=== PATIENT | female | born 1955 | race Caucasian/White ===

== ENCOUNTER 2018-11-06 11:44 | Observation (INO) ==
[2018-11-06 12:22] LABS: Basophils # 0.1 K/mcL (0.0-0.2); Eosinophils # 0.2 K/mcL (0.0-0.6); Eosinophils % 2.5 %; Hematocrit 43.3 % (35.3-44.9); Hemoglobin 14.9 g/dL (11.5-15.4); Immature Granulocytes % 0.2 % (0-4); Lymphocytes # 2.5 K/mcL (0.6-4.6); Lymphocytes % 27.9 %; Mean Corpuscular HGB Conc 34.4 g/dL (31.6-35.5); Mean Corpuscular Hemoglobin 31.2 pg (28.0-33.3); Mean Corpuscular Volume 90.8 fL (83.0-100.0); Mean Platelet Volume 9.4 fL (9.4-12.4); Monocytes # 0.7 K/mcL (0.0-1.3); Monocytes % 7.9 %; Neutrophils # 5.4 K/mcL (1.6-8.9); Platelet Count 303 K/mcL (140-400); Red Blood Count 4.77 M/mcL (3.82-4.97); Red Cell Distribution Width 12.6 % (11.5-14.5); Segmented Neutrophils % 60.5 %; White Blood Count 8.9 K/mcL (4.3-11.1)
[2018-11-06 12:38] LABS: BUN/Creatinine Ratio 13 (6-26); Blood Urea Nitrogen 17 mg/dL (8-23); Calcium 9.9 mg/dL (8.6-10.3); Carbon Dioxide 27 mEq/L (23-29); Chloride 97 mEq/L (98-107); Glucose 130 mg/dL (70-105); Osmolality,Calculated 275 (280-300); Potassium 4.6 mEq/L (3.5-5.1); Sodium 131 mEq/L (136-145); Troponin I < 0.03 ng/mL (< 0.04); eGFR For African Americans 48 (> 60); eGFR For Non-African Americans 39 (> 60)
--- NOTE | 2018-11-06 13:05 | Emergency Department Note ---
Disposition Clinical Impression: Chest pain Qualifiers: Chest pain type: unspecified Qualified Code(s): R07.9 - Chest pain, unspecified Disposition: Admitted As Inpatient Condition: Good Time of Disposition: 16:24 General Adult HPI - General Chief complaint: ED Chest Pain Stated complaint: Chest Pains Time Seen by Provider: 11/06/18 11:47 Source: patient Limitations: other Nursing Notes Reviewed: Yes Vital Signs Reviewed: Yes - History of Present Illness Pain Scale: 9 - Related Data Home Medications Medication Instructions Recorded Confirmed ARIPiprazole [Abilify] 2 mg PO HS 11/06/18 11/06/18 Albuterol Neb [Proventil Neb] 2.5 mg IH Q4HR PRN 11/06/18 11/06/18 Albuterol Sulfate [Proventil 2 puff IH Q4HR PRN 11/06/18 11/06/18 Inhaler] Buspirone HCl [Buspar] 30 mg PO BID 11/06/18 11/06/18 Gabapentin [Neurontin] 400 mg PO TID 11/06/18 11/06/18 GlipiZIDE [Glucotrol] 5 mg PO 0800 11/06/18 11/06/18 Lisinopril [Zestril] 20 mg PO DAILY 11/06/18 11/06/18 Loratadine [Allergy Relief] 10 mg PO DAILY 11/06/18 11/06/18 Omeprazole [PriLOSEC] 20 mg PO DAILY 11/06/18 11/06/18 Paroxetine HCl [Paxil] 60 mg PO DAILY 11/06/18 11/06/18 Simvastatin [Zocor] 40 mg PO HS 11/06/18 11/06/18 Topiramate [Topamax] 50 mg PO HS 11/06/18 11/06/18 Tramadol HCl [Ultram] 50 mg PO QID PRN 11/06/18 11/06/18 Trospium Chloride 20 mg PO DAILY 11/06/18 11/06/18 hydrOXYzine HCl [Hydroxyzine HCl] 25 mg PO BID PRN 11/06/18 11/06/18 Allergies Allergy/AdvReac Type Severity Reaction Status Date / Time ciprofloxacin [From Cipro] Allergy Rash Verified 02/03/17 16:14 ketorolac [From Toradol] Allergy Rash Verified 02/03/17 16:14 prednisone Allergy Rash Verified 02/03/17 16:14 loratab Allergy Rash Uncoded 02/03/17 16:14 Past Medical History - Past Medical History Medical history: Reports: asthma, COPD, diabetes, GERD, hyperlipidemia, hypertension, renal disease, seizures, other Surgical history: Reports: cholecystectomy, hysterectomy, pacemaker/AICD Psychiatric history: Reports: no psych history - Social History Smoking Status: Current every day smoker Smokeless Tobacco Status: No Alcohol use: Reports: none Drug use: Reports: marijuana Physical Exam - General Limitations: other General appearance: alert, in no apparent distress Course Vital Signs Temperature 98.2 F 11/06/18 11:56 Pulse Rate 77 11/06/18 11:56 Respiratory Rate 18 11/06/18 11:56 Blood Pressure 143/97 11/06/18 11:56 O2 Sat by Pulse Oximetry 99 11/06/18 11:56 Temperature 98.0 F 11/06/18 15:59 Pulse Rate 71 11/06/18 15:59 Respiratory Rate 16 11/06/18 15:59 Blood Pressure 154/68 11/06/18 15:59 O2 Sat by Pulse Oximetry 96 11/06/18 15:59 Oxygen Delivery Oxygen Delivery Room Air Medical Decision Making - [facility] Narrative Medical decision making narrative: Chest X-Ray 11/06/18 11:47 IMPRESSION: Normal appearing chest. No acute abnormality. D/ / Vijay Cooper MD / Vijay Cooper MD Interpreting Provider: Vijay Cooper MD 1300 hrs.: Chest x-rays negative. Troponin is negative and d-dimer is normal. We will let her go home, follow up with primary care and return her if worse. She is in agreement with plan. 1415 hrs.: Patient's side she wants to be admitted so we will bring her in. She does have her factors for cardiac disease. Waiting on hospitalist for admission. 1520 hrs.: Patient is getting ready upstairs and started having some chest pain again. She had a repeat EKG, shows a sinus rhythm, rate is 72, QRS is 80, QTC is 413, has no signs of ischemia has no signs of ectopy. We also give her some Ativan as she think she is having anxiety. - Lab Data Result diagrams: 11/06/18 12:00 11/06/18 12:00 Lab Results 11/06/18 11/06/18 11/06/18 Range/Units 12:00 12:00 12:00 WBC 8.9 (4.3-11.1) K/mcL RBC 4.77 (3.82-4.97) M/mcL Hgb 14.9 (11.5-15.4) g/dL Hct 43.3 (35.3-44.9) % MCV 90.8 (83.0-100.0) fL MCH 31.2 (28.0-33.3) pg MCHC 34.4 (31.6-35.5) g/dL RDW 12.6 (11.5-14.5) % Plt Count 303 (140-400) K/mcL MPV 9.4 (9.4-12.4) fL Immature Gran % 0.2 (0-4) % Seg Neutrophils % 60.5 % Lymphocytes % 27.9 % Monocytes % 7.9 % Eosinophils % 2.5 % Basophils % 1.0 % Neutrophils # 5.4 (1.6-8.9) K/mcL Lymphocytes # 2.5 (0.6-4.6) K/mcL Monocytes # 0.7 (0.0-1.3) K/mcL Eosinophils # 0.2 (0.0-0.6) K/mcL Basophils # 0.1 (0.0-0.2) K/mcL D-Dimer 241 (0-500) ng/mLFEU Sodium 131 L (136-145) mEq/L Potassium 4.6 (3.5-5.1) mEq/L Chloride 97 L (98-107) mEq/L Carbon Dioxide 27 (23-29) mEq/L BUN 17 (8-23) mg/dL Creatinine 1.36 H (0.60-1.20) mg/dL Est GFR ( Amer) 48 L (> 60) Est GFR (Non-Af Amer) 39 L (> 60) BUN/Creatinine Ratio 13 (6-26) Glucose 130 H (70-105) mg/dL Calculated Osmolality 275 L (280-300) Calcium 9.9 (8.6-10.3) mg/dL Troponin I < 0.03 (< 0.04) ng/mL Attestation Statement - Attestation Attestation: This documentation is done with the assistance of Dragon dictation. Despite efforts made to ensure accuracy, there may be inaccuracies in transport assistant or spelling and typographical errors. I examined this patient and my medical decision-making was reviewed with the Resident Physician. I agree with the documented findings, disposition and treatment plan as described except to the extent set forth below. Patient was seen and evaluated by Dr. Mg, I agree with their evaluation and management plan, I supervised care the patient's stay. Patient presents today with what she thinks is anxiety. She says she has had anxiety attacks before but she says she usually does not chest pain with them. She states that this could easily be anxiety. She does have risk factors for heart disease also. She states at this time she would like to make sure this is not her heart. Regarding EKG troponin and then we will reassess. She has some said sedentary lifestyle so she is low risk for PE with all's criteria. We will order a d-dimer on her also. She is in agreement with plan. No chest pain at this time. I reviewed the residents documentation and agree with the residents assessment and plan of care. I have personally had face to face time with the patient. (Brief History, Brief Exam, and MDM) I personally supervised and was present for the penn/critical portions of the following procedures completed by the resident: EKG was interpreted by the resident under my supervision, I agree with their interpretation.
[2018-11-06] MEDS ORDERED: Aspirin 81 MG TAB.CHEW PO STA (13:21)
[2018-11-06] MEDS: Nitroglycerin 0.4 MG TAB.SUBL SL STA ×2 (13:53→13:55)
--- NOTE | 2018-11-06 13:54 | Emergency Department Note ---
Disposition Clinical Impression: Chest pain Qualifiers: Chest pain type: unspecified Qualified Code(s): R07.9 - Chest pain, unspecified Disposition: Admitted As Inpatient Condition: Good Referrals: Jenifer Louis MD [Partnered Physician] - Forms: ED Satisfaction Letter Time of Disposition: 14:38 Chest Pain HPI - General Chief Complaint: ED Chest Pain Stated Complaint: Chest Pains Time Seen by Provider: 11/06/18 11:47 Source: patient Mode of arrival: ambulatory Limitations: other (Patient's blind.) Vital Signs Reviewed: Yes Nursing Notes Reviewed: Yes - History of Present Illness HPI Narrative: Female patient presents emergency with a 2 day history of left-sided chest pain. She states that she got anxious and then started having the pain. She has had anxiety attacks before and never had chest pain. Does have a history of diabetes as well as high cholesterol, is a smoker and has hypertension. She is currently blind segment due to macular degeneration that advanced significantly. She is still being worked up for this at this time. She states that the pain does radiate to her back. Does have occasional shortness of breath associated with this. She has not tried anything to make this better. She has been taking her medication as prescribed. She denies any trauma. No history of DVT or PE. No swelling to her extremities. She denies any long trips but does lead a sedentary lifestyle secondary to her blindness. Severity scale (1-10): 9 - Related Data Home Medications Medication Instructions Recorded Confirmed Advair 500-50 Diskus 02/03/17 Albuterol Neb 02/03/17 Glipizide 02/03/17 Lisinopril [Zestril] 02/03/17 Loratadine 02/03/17 Meloxicam 02/03/17 Nicotine Patch 02/03/17 Omeprazole 02/03/17 Paroxetine HCl 02/03/17 Proair Hfa 02/03/17 Simvastatin 02/03/17 Tramadol HCl 02/03/17 Trospium Chloride 02/03/17 Previous Rx's Medication Instructions Recorded Diclofenac Sodium [Voltaren] 50 mg PO Q8HR PRN #30 tablet. 02/03/17 Allergies Allergy/AdvReac Type Severity Reaction Status Date / Time ciprofloxacin [From Cipro] Allergy Rash Verified 02/03/17 16:14 ketorolac [From Toradol] Allergy Rash Verified 02/03/17 16:14 prednisone Allergy Rash Verified 02/03/17 16:14 loratab Allergy Rash Uncoded 02/03/17 16:14 All systems ED: reviewed and negative except as stated. Review of Systems: As Per HPI Constitutional: Denies: fever, chills Cardiovascular: Reports: chest pain. Denies: palpitations, syncope Respiratory: Reports: cough, dyspnea, sputum production Gastrointestinal: Denies: abdominal pain, nausea, vomiting, diarrhea, hematemesis, melena, hematochezia Genitourinary: Denies: urgency, dysuria, frequency, hematuria Musculoskeletal: Denies: back pain Psychiatric: Reports: anxiety (Previously but not at this time.) Chest Pain PMH - Past Medical History Medical history: Reports: asthma, COPD, diabetes, GERD, hyperlipidemia, hypertension, renal disease, seizures, other Surgical history: Reports: cholecystectomy, hysterectomy, pacemaker/AICD Psychiatric history: Reports: no psych history - Social History Smoking Status: Current every day smoker Alcohol use: Reports: none Drug use: Reports: marijuana Physical Exam - General Limitations: other General appearance: alert, in no apparent distress - Head Head exam: atraumatic, normocephalic, normal inspection - Eye Eye exam: Present: normal appearance, PERRL, EOMI - ENT ENT exam: normal exam, normal oropharynx, mucous membranes moist - Neck Neck exam: Present: normal inspection, full ROM, trachea midline - Chest Chest inspection: Present: normal inspection, symmetric chest wall rise - Respiratory Respiratory exam: Present: normal lung sounds bilaterally. Absent: respiratory distress, accessory muscle use - Cardiovascular Cardiovascular exam: Present: regular rate, normal rhythm, normal heart sounds - Abdominal Exam Abdominal exam: Present: soft, Non-Tender. Absent: tenderness, distention, guarding, rebound, rigidity, organomegaly, Mckinney's sign, Rovsing's sign, tenderness at McBurney's Point - Extremities Exam Extremities exam: Present: normal inspection, full ROM, normal capillary refill. Absent: tenderness, pedal edema, calf tenderness - Expanded Lower Extremity Exam Hip/Pelvis exam: Present: normal inspection, full ROM Upper leg exam: Present: normal inspection, full ROM Knee exam: Present: normal inspection, full ROM Lower leg exam: Present: normal inspection, full ROM Ankle exam: Present: normal inspection, full ROM Foot/toe exam: Present: normal inspection, full ROM Neurovascular/Tendon exam: Absent: motor deficit, sensory deficit, tendon deficit - Back Exam Back exam: Present: normal inspection, full ROM. Absent: tenderness - Neurological Exam Neurological exam: Present: alert, oriented X3. Absent: motor sensory deficit - Psychiatric Psychiatric exam: Present: normal affect, normal mood - Skin Skin exam: Present: warm, dry, intact, normal color. Absent: rash, cyanosis, diaphoresis Course Course Narrative: Patient with left-sided chest pain that radiates to her back. Does have some short of breath and cough so she with it. Lung sounds are clear heart tones are normal. Abdomen is soft nontender. No social nausea or vomiting. Does report that this started around an anxiety attack however she has never had chest pain associated with anxiety attack before. Patient reports no cardiac history. However she has a smoker and has diabetes as well as hypercholesterolemia. No history of DVT or PE for her. Vitals are stable. We will provide her with aspirin get a cardiac workup inclusive of the chest x-ray. Patient does not have any wheezing for me to assume that this could be a COPD exacerbation and there are no focal areas of rhonchi that I can appreciate on auscultation. - Reevaluation(s) Reevaluation #1: Patient with a heart score of 5. Negative troponin. I discussed with patient findings with her. She is requesting admission for further cardiac evaluation. I feel this is reasonable. Her blood pressure has been around 100 systolic so nitroglycerin was withheld. We will provide her with morphine to help with her pain. Time: 14:22 - Consultations Consultation #1: Dr Clark accepted Pt in stable condition. Time: 14:36 Vital Signs Temperature 98.2 F 11/06/18 11:56 Pulse Rate 77 11/06/18 11:56 Respiratory Rate 18 11/06/18 11:56 Blood Pressure 143/97 11/06/18 11:56 O2 Sat by Pulse Oximetry 99 11/06/18 11:56 Temperature 98.2 F 11/06/18 11:56 Pulse Rate 84 11/06/18 14:20 Respiratory Rate 16 11/06/18 13:53 Blood Pressure 122/76 11/06/18 14:20 O2 Sat by Pulse Oximetry 98 11/06/18 14:20 Oxygen Delivery Oxygen Delivery Room Air Chest Pain - Medical Records Medical records reviewed: Yes I reviewed the patient's medical records. - Lab Data Lab results reviewed: Yes I reviewed the patient's lab results. Result diagrams: 11/06/18 12:00 11/06/18 12:00 Lab Results 11/06/18 11/06/18 11/06/18 Range/Units 12:00 12:00 12:00 WBC 8.9 (4.3-11.1) K/mcL RBC 4.77 (3.82-4.97) M/mcL Hgb 14.9 (11.5-15.4) g/dL Hct 43.3 (35.3-44.9) % MCV 90.8 (83.0-100.0) fL MCH 31.2 (28.0-33.3) pg MCHC 34.4 (31.6-35.5) g/dL RDW 12.6 (11.5-14.5) % Plt Count 303 (140-400) K/mcL MPV 9.4 (9.4-12.4) fL Immature Gran % 0.2 (0-4) % Seg Neutrophils % 60.5 % Lymphocytes % 27.9 % Monocytes % 7.9 % Eosinophils % 2.5 % Basophils % 1.0 % Neutrophils # 5.4 (1.6-8.9) K/mcL Lymphocytes # 2.5 (0.6-4.6) K/mcL Monocytes # 0.7 (0.0-1.3) K/mcL Eosinophils # 0.2 (0.0-0.6) K/mcL Basophils # 0.1 (0.0-0.2) K/mcL D-Dimer 241 (0-500) ng/mLFEU Sodium 131 L (136-145) mEq/L Potassium 4.6 (3.5-5.1) mEq/L Chloride 97 L (98-107) mEq/L Carbon Dioxide 27 (23-29) mEq/L BUN 17 (8-23) mg/dL Creatinine 1.36 H (0.60-1.20) mg/dL Est GFR ( Amer) 48 L (> 60) Est GFR (Non-Af Amer) 39 L (> 60) BUN/Creatinine Ratio 13 (6-26) Glucose 130 H (70-105) mg/dL Calculated Osmolality 275 L (280-300) Calcium 9.9 (8.6-10.3) mg/dL Troponin I < 0.03 (< 0.04) ng/mL - Radiology Data Radiology results reviewed: Yes I reviewed the patient's radiology results. Chest X-Ray 11/06/18 11:47 IMPRESSION: Normal appearing chest. No acute abnormality. D/ / Vijay Cooper MD / Vijay Cooper MD Interpreting Provider: Vijay Cooper MD - EKG Data EKG attestation: Yes I reviewed and interpreted this EKG. EKG results narrative: Normal sinus rhythm at a rate of 81. [place] interval is 171. QRS duration is 91. QT is 382. QTC is 447. No signs of acute ischemia. Good R-wave progression. No signs of WPW or Brugada. No previous EKG to compare to. Blunting of her T- wave in lead V1 Heart Score - Score History: Moderately Suspicious EKG: Non Specific repolarisation Disturbance Age: 45-65 Risk Factors: Equal/Greater than 3 risk factor or history of atherosclerotic disease Troponin: Less than normal limit HEART Score Total: 5
[2018-11-06] MEDS ORDERED: Morphine Sulfate 2 MG/ML SYRINGE IVP STA (14:09)
[2018-11-06] MEDS ORDERED: Ondansetron 4 MG/2 ML VIAL IVP PRN (14:43)
[2018-11-06] MEDS ORDERED: Naloxone 0.4 MG/ML INJ IVP PRN (14:43)
[2018-11-06] MEDS ORDERED: traMADol 50 MG TABLET PO PRN (14:45)
[2018-11-06] MEDS ORDERED: hydrOXYzine pamoate 25 MG CAPSULE PO PRN (14:45)
[2018-11-06] MEDS ORDERED: Albuterol 2.5 MG/3 ML NEBULIZER IH PRN (14:45)
[2018-11-06] MEDS ORDERED: *HR* Dextrose 50 % in Water (Syg) 50 ML SYRINGE IVP PRN (14:45)
[2018-11-06] MEDS ORDERED: Dextrose Gel 15 GM/37.5 ML TUBE PO PRN ×2 (14:45)
[2018-11-06] MEDS ORDERED: D5% in Water 1,000 ML IVC PRN (14:45)
--- NOTE | 2018-11-06 15:05 | Internal Med History&Physical ---
Date of Encounter: 11/06/18 Time of Encounter: 14:40 Internal Medicine - H&P: HPI Chief complaint: chest pain Admitted From: Home History of present illness: Ms. Conner is a 63 year old female with history of hypertension, tobacco abuse, HLD, diabetes no longer on meds, CKD stage III, blindness due to macular degeneration, presented to the ED with 2 week history of intermittent chest pain. Left-sided, lasting 10-15 minutes each time, and radiates to the neck. She states that they occur when she has "panic attacks" and are associated with p alpitation. No relieving factors. She also had SOB and nausea associated with the events but no diaphoresis or actual vomiting. Denies any fever/chills, cough, sputum production, sick contacts, abdominal pain, change in bowel habits, or dysuria. States that she had stress tests about 10 years ago which was reported to be normal. Her usual panic attacks are not accompanied by chest pain hence she decided come to the ED for further evaluation. In the ED, she was afebrile and hemodynamically stable. Labwork including troponin and d-dimer were normal. Creatinine at her baseline. Chest x-ray without any acute cardiopulmonary process. EKG showed normal sinus rhythm without concerning isc hemic changes. Patient was loaded with aspirin and admitted for further management. Past Med Surg Social Fam HX - Past Medical History Attestation: Yes The following information was validated with the patient. Medical history: asthma, COPD, diabetes, GERD, hyperlipidemia, hypertension, renal disease, other Additional medical history: macular degeneration,blind Psychiatric history: no psych history - Past Surgical History Surgical History: cholecystectomy, hysterectomy Additional surgical history: carpal tunnel, bladder surgery, left rotator cuff - Social History Smoking Status: Current every day smoker Smokeless Tobacco Status: No Alcohol use: none Drug use: marijuana - Additional Family History Additional family history: No family history of premature CAD Internal Medicine - H&P: Meds ARIPiprazole [Abilify] 2 mg PO HS 11/06/18 [History] Albuterol Neb [Proventil Neb] 2.5 mg IH Q4HR PRN 11/06/18 [History] Albuterol Sulfate [Proventil Inhaler] 2 puff IH Q4HR PRN 11/06/18 [History] Buspirone HCl [Buspar] 30 mg PO BID 11/06/18 [History] Gabapentin [Neurontin] 400 mg PO TID 11/06/18 [History] GlipiZIDE [Glucotrol] 5 mg PO 0800 11/06/18 [History] Lisinopril [Zestril] 20 mg PO DAILY 11/06/18 [History] Loratadine [Allergy Relief] 10 mg PO DAILY 11/06/18 [History] Omeprazole [PriLOSEC] 20 mg PO DAILY 11/06/18 [History] Paroxetine HCl [Paxil] 60 mg PO DAILY 11/06/18 [History] Simvastatin [Zocor] 40 mg PO HS 11/06/18 [History] Topiramate [Topamax] 50 mg PO HS 11/06/18 [History] Tramadol HCl [Ultram] 50 mg PO QID PRN 11/06/18 [History] Trospium Chloride 20 mg PO DAILY 11/06/18 [History] hydrOXYzine HCl [Hydroxyzine HCl] 25 mg PO BID PRN 11/06/18 [History] Allergy/AdvReac Type Severity Reaction Status Date / Time ciprofloxacin [From Cipro] Allergy Rash Verified 02/03/17 16:14 ketorolac [From Toradol] Allergy Rash Verified 02/03/17 16:14 prednisone Allergy Rash Verified 02/03/17 16:14 loratab Allergy Rash Uncoded 02/03/17 16:14 All Systems PM: A 10-system review of systems was performed and is negative for pertinent findings except as documented above in the HPI. - Constitutional Vitals: Temp Pulse Resp BP Pulse Ox 98.2 F 84 16 122/76 98 11/06/18 11:56 11/06/18 14:20 11/06/18 13:53 11/06/18 14:20 11/06/18 14:20 Exam: General: Alert and oriented, not in acute distress. HEENT:Blind Cardiovascular:Normal S1 & S2, No JVD. Pulse regular. No chest wall tenderness Lungs: clear to auscultation, no wheezes/rales Abdomen:Soft, non-tender, no rigidity. Extremities:No deformity or swelling Neurological:Normal cognition and motor skills. Non-focal Skin:Normal color, no rash, no lesions. Pulses:Carotid and radial pulses normal +2. Rest of the physical exam is non contributory Internal Med - H&P Results - Labs CBC & Chem 7: 11/06/18 12:00 11/06/18 12:00 Labs: Short CBC 11/06/18 Range/Units 12:00 WBC 8.9 (4.3-11.1) K/mcL Hgb 14.9 (11.5-15.4) g/dL Hct 43.3 (35.3-44.9) % Plt Count 303 (140-400) K/mcL Neutrophils # 5.4 (1.6-8.9) K/mcL BMP 11/06/18 12:00 Sodium 131 L Potassium 4.6 Chloride 97 L Carbon Dioxide 27 BUN 17 Creatinine 1.36 H Glucose 130 H Calcium 9.9 Cardiac Enzymes 11/06/18 Range/Units 12:00 Troponin I < 0.03 (< 0.04) ng/mL - Impressions ITS Impressions Chest X-Ray 11/06/18 11:47 IMPRESSION: Normal appearing chest. No acute abnormality. D/ / Vijay Cooper MD / Vijay Cooper MD Interpreting Provider: Vijay Cooper MD - Assessment and Plan (1) Chest pain Current Visit: Yes Status: Acute Assessment and plan: Atypical chest pain in a patient with hypertension, hyperlipidemia, CKD, well c ontrolled diabetes, and tobacco abuse Associated with bouts of panic attacks but have been becoming morefrequent First troponin negative, EKG without acute changes, D-dimer -ve trend troponin, telemetry echocardiogram if serial troponins are negative, will proceed with stress test tomorrow. Nothing by mouth after midnight. Qualifiers: Chest pain type: unspecified Qualified Code(s): R07.9 - Chest pain, unspecified (2) Panic attack Current Visit: Yes Status: Acute Assessment and plan: Resume home dose of hydroxyzine Continue SSRI Will add Ativan if symptoms are poorly controlled (3) HTN (hypertension) Current Visit: Yes Status: Chronic Assessment and plan: resume home meds Qualifiers: Hypertension type: essential hypertension Qualified Code(s): I10 - Essential (primary) hypertension (4) HLD (hyperlipidemia) Current Visit: Yes Status: Chronic Assessment and plan: Lipid panel in 09/2018 showed LDL of 70 resume home dose of statin Qualifiers: Hyperlipidemia type: unspecified Qualified Code(s): E78.5 - Hyperlipidemia, unspecified (5) COPD (chronic obstructive pulmonary disease) Current Visit: Yes Status: Chronic Assessment and plan: Not in exacerbation, resume home inhalers Qualifiers: COPD type: unspecified COPD Qualified Code(s): J44.9 - Chronic obstructive pulmonary disease, unspecified (6) Tobacco abuse Current Visit: Yes Status: Chronic Assessment and plan: Counselled on smoking cessation NRT (7) DVT prophylaxis Current Visit: Yes Status: Acute Assessment and plan: SQ heparin - Time Spent With Patient Total time spent is greater than 50% in coordination of care (as documented) at patient's floor/unit and/or counseling patient: 25 - 35 minutes
[2018-11-06] MEDS ORDERED: *HR* LORazepam 0.5 MG TABLET PO ONE (15:24)
[2018-11-06] MEDS ORDERED: Ondansetron 4 MG/2 ML VIAL IVP ONE (15:38)
[2018-11-06] MEDS ORDERED: Nitroglycerin 0.4 MG TAB.SUBL SL ONE (16:20)
[2018-11-06] MEDS: Nitroglycerin 0.4 MG TAB.SUBL SL PRN ×3 (16:21→21:19)
[2018-11-06] MEDS ORDERED: Insulin LISPRO 300 UNITS/3 ML VIAL SQ SCH (16:30)
[2018-11-06] MEDS: Gabapentin 400 MG CAPSULE PO SCH ×2 (17:29→20:57)
[2018-11-06] MEDS ORDERED: ARIPiprazole 2 MG TABLET PO SCH (21:00)
[2018-11-06] MEDS ORDERED: Topiramate 25 MG TABLET PO SCH (21:00)
[2018-11-07 01:18] LABS: Hematocrit 40.4 % (35.3-44.9); Hemoglobin 13.7 g/dL (11.5-15.4); Mean Corpuscular HGB Conc 33.9 g/dL (31.6-35.5); Mean Corpuscular Hemoglobin 30.7 pg (28.0-33.3); Mean Corpuscular Volume 90.6 fL (83.0-100.0); Mean Platelet Volume 9.4 fL (9.4-12.4); Platelet Count 277 K/mcL (140-400); Red Blood Count 4.46 M/mcL (3.82-4.97); Red Cell Distribution Width 12.5 % (11.5-14.5); White Blood Count 7.3 K/mcL (4.3-11.1)
[2018-11-07 01:34] LABS: Calcium 9.1 mg/dL (8.6-10.3); Magnesium 1.9 mg/dL (1.6-2.6); Potassium 4.1 mEq/L (3.5-5.1)
[2018-11-07] MEDS ORDERED: Morphine Sulfate 2 MG/ML SYRINGE IVP ONE ×2 (03:54→04:02)
[2018-11-07] MEDS: Nitroglycerin 0.4 MG TAB.SUBL SL PRN (04:00)
[2018-11-07] MEDS ORDERED: *HR* Heparin 5,000 UNIT/ML VIAL IVP PRN ×2 (04:03)
[2018-11-07] MEDS ORDERED: *HR* Heparin 5,000 UNIT/ML VIAL IVP ONE (04:03)
[2018-11-07] MEDS ORDERED: Nitroglycerin 25 MG/250 ML INFUS..BTL IVC SCH (04:15)
[2018-11-07] MEDS ORDERED: Heparin 25,000 UNIT/250 ML D5W 25,000 UNIT/250 ML IV.SOLN IVC SCH (04:15)
[2018-11-07 04:39] LABS: INR 0.9; Prothrombin Time 10.1 Seconds (9.4-12.1)
[2018-11-07 04:39] LABS: Hematocrit 42.3 % (35.3-44.9); Hemoglobin 14.4 g/dL (11.5-15.4); Immature Platelets 1.8 % (1.1-6.1); Mean Corpuscular Hemoglobin 30.7 pg (28.0-33.3); Mean Corpuscular Volume 90.2 fL (83.0-100.0); Mean Platelet Volume 9.2 fL (9.4-12.4); Red Blood Count 4.69 M/mcL (3.82-4.97); Red Cell Distribution Width 12.4 % (11.5-14.5); White Blood Count 8.9 K/mcL (4.3-11.1)
[2018-11-07 04:40] LABS: Heparin anti-factor XA UFH 0.07 IU/mL (0.30-0.70)
[2018-11-07 04:42] LABS: Activated Partial Thrombo Time 32.3 Seconds (26.0-36.0)
--- NOTE | 2018-11-07 07:53 | Event Note ---
Date of Encounter: 11/07/18 Time of Encounter: 03:54 Alerted by pts. nurse Leeann, RN that the pt. was reporting crushing CP 10/10 and could I please come see the pt. Pt. was admitted for CP and ACS r/o. I went to the pt. immediately who was clutching her chest and SOB. Pt. was also diaphoretic. Pt. reported CP in left breast. Stat EKG ordered as well as stat troponin. Initial troponins had been negative. Nurse instructed to give SL nitro to pt. I sent Vocera to Dr. Mcghee to come and see the pt. Heparin gtt and nitro gtt ordered. EKG showed sinus rhythm with marked ST elevation, consider inferior injury. Marked ST elevation without normally inflected T-wave and 2/aVF. Acute MS. Dr. Mcghee came to assess the pt. Dr. Sutton paged at 03:54 as he was long term for Interventional Cardiology. Images of the pts. EKG sent to Dr. Sutton via [facility]. Dr. Sutton returned call at 04:19 w/instruction to get new EKG as he felt this was a spasm or artifact. New EKG showed SR and normal EKG. Dr. Sutton's interpretation was that the EKG machine was over-reading. Patient reported CP was now a 4/10 after the 2 mg IVP morphine and SL nitro. I checked on this patient several times over the next hour to assess her progress. Nurse instructed to continue monitoring the pt. very closely and alert me immediately of any adverse changes.
--- NOTE | 2018-11-07 08:28 | Event Note ---
Date of Encounter: 11/07/18 Time of Encounter: 08:20 - Cardiology Event Note Laboratory Tests 11/06/18 11/06/18 11/07/18 12:00 18:07 00:41 Troponin I < 0.03 < 0.03 < 0.03 11/07/18 03:56 Troponin I < 0.03 Currently CP free. Will wean IV NTG off. ECG stable. Echo pending. Discussed with primary service, stress test pending later this am once NTG gtt off. Discussed with Dr. Oconnor, please consult if any abnormal results on echo or ST.
[2018-11-07] MEDS ORDERED: Aspirin Enteric Coated 81 MG Tablet PO SCH (09:00)
[2018-11-07] MEDS ORDERED: Loratadine 10 MG TABLET PO SCH (09:00)
[2018-11-07] MEDS ORDERED: Lisinopril 20 MG TABLET PO SCH (09:00)
[2018-11-07] MEDS ORDERED: Nicotine 21 MG PATCH.TD24 TD SCH (09:00)
[2018-11-07] MEDS ORDERED: Regadenoson 0.4 MG/5 ML SYRINGE IVP ONE (10:39)
[2018-11-07] MEDS: Gabapentin 400 MG CAPSULE PO SCH ×2 (11:51→13:32)
[2018-11-07 12:01] VITALS: BP 148/85
--- NOTE | 2018-11-07 13:48 | Discharge Summary ---
- NOTES TO OUTPATIENT PROVIDER Notes to Outpatient Provider: Follow up with PCP. Date of Encounter: 11/07/18 Time of Encounter: 12:00 - Discharge Diagnosis (1) Chest pain Priority: Primary Status: Acute Qualifiers: Chest pain type: unspecified Qualified Code(s): R07.9 - Chest pain, unspecified (2) Panic attack Priority: Secondary Status: Acute (3) HTN (hypertension) Priority: Secondary Status: Chronic Qualifiers: Hypertension type: essential hypertension Qualified Code(s): I10 - Essential (primary) hypertension (4) HLD (hyperlipidemia) Priority: Secondary Status: Chronic Qualifiers: Hyperlipidemia type: unspecified Qualified Code(s): E78.5 - Hyperlipidemia, unspecified (5) COPD (chronic obstructive pulmonary disease) Priority: Secondary Status: Chronic Qualifiers: COPD type: unspecified COPD Qualified Code(s): J44.9 - Chronic obstructive pulmonary disease, unspecified (6) Tobacco abuse Priority: Secondary Status: Chronic (7) DVT prophylaxis Priority: Secondary Status: Acute Hospital course: Ms. Conner is a 63 year old female with history of hypertension, tobacco abuse, HLD, diabetes no longer on meds, CKD stage III, blindness due to macular degeneration, who was admitted for 2 week history of intermittent, atypical chest pain. Correlated to the episodes of panic attack but given her risk factors, she was admitted for observation. Serial troponins -ve, EKG no ischemic changes, and echocardiogram was unremarkable. She did briefly require hep and nitro gtt in concern for unstable angina but subsequent stress test (after nitro being weaned off) was normal. She will be discharged on PRN ativan for panic attacks and follow up with PCP and psychiatry. If symptoms recur and persist despite treatment for panic attacks, she was advised to return to the ED or get cardiology appointment. Discharge discussed with: patient, nurse, library sales consultant - Time Spent with Patient Total time spent providing and/or coordinating discharge services: 29 mins - Discharge Medications Prescriptions: New LORazepam [Ativan] 0.5 mg PO TID PRN 5 Days #15 tablet PRN Reason: Anxiety Nitroglycerin 0.4 mg SL Q5MPRN PRN #30 tab.subl PRN Reason: Chest Pain Continued hydrOXYzine HCl [Hydroxyzine HCl] 25 mg PO BID PRN PRN Reason: Anxiety GlipiZIDE [Glucotrol] 5 mg PO 0800 Albuterol Sulfate [Proventil Inhaler] 2 puff IH Q4HR PRN PRN Reason: sob/wheeze Albuterol Neb [Proventil Neb] 2.5 mg IH Q4HR PRN PRN Reason: sob/wheeze Trospium Chloride 20 mg PO DAILY Tramadol HCl [Ultram] 50 mg PO QID PRN PRN Reason: Pain Topiramate [Topamax] 50 mg PO HS Simvastatin [Zocor] 40 mg PO HS Paroxetine HCl [Paxil] 60 mg PO DAILY Loratadine [Allergy Relief] 10 mg PO DAILY ARIPiprazole [Abilify] 2 mg PO HS Omeprazole [PriLOSEC] 20 mg PO DAILY Lisinopril [Zestril] 20 mg PO DAILY Gabapentin [Neurontin] 400 mg PO TID Buspirone HCl [Buspar] 30 mg PO BID Home Medications: ARIPiprazole [Abilify] 2 mg PO HS 11/06/18 [History] Albuterol Neb [Proventil Neb] 2.5 mg IH Q4HR PRN 11/06/18 [History] Albuterol Sulfate [Proventil Inhaler] 2 puff IH Q4HR PRN 11/06/18 [History] Buspirone HCl [Buspar] 30 mg PO BID 11/06/18 [History] Gabapentin [Neurontin] 400 mg PO TID 11/06/18 [History] GlipiZIDE [Glucotrol] 5 mg PO 0800 11/06/18 [History] Lisinopril [Zestril] 20 mg PO DAILY 11/06/18 [History] Loratadine [Allergy Relief] 10 mg PO DAILY 11/06/18 [History] Omeprazole [PriLOSEC] 20 mg PO DAILY 11/06/18 [History] Paroxetine HCl [Paxil] 60 mg PO DAILY 11/06/18 [History] Simvastatin [Zocor] 40 mg PO HS 11/06/18 [History] Topiramate [Topamax] 50 mg PO HS 11/06/18 [History] Tramadol HCl [Ultram] 50 mg PO QID PRN 11/06/18 [History] Trospium Chloride 20 mg PO DAILY 11/06/18 [History] hydrOXYzine HCl [Hydroxyzine HCl] 25 mg PO BID PRN 11/06/18 [History] LORazepam [Ativan] 0.5 mg PO TID PRN 5 Days #15 tablet 11/07/18 [Rx] Nitroglycerin 0.4 mg SL Q5MPRN PRN #30 tab.subl 11/07/18 [Rx] Allergies/Adverse Reactions: Allergy/AdvReac Type Severity Reaction Status Date / Time ciprofloxacin [From Cipro] Allergy Rash Verified 02/03/17 16:14 ketorolac [From Toradol] Allergy Rash Verified 02/03/17 16:14 prednisone Allergy Rash Verified 02/03/17 16:14 loratab Allergy Rash Uncoded 02/03/17 16:14 Date of admission: 11/06/18 14:47 Primary care physician: Jenifer Louis - Constitutional Vitals: Temp Pulse Resp BP Pulse Ox 97.7 F 81 17 148/85 98 11/07/18 06:31 11/07/18 08:45 11/07/18 08:45 11/07/18 08:45 11/07/18 08:45 Exam: General: Alert and oriented, not in acute distress. HEENT:Blind Cardiovascular:Normal S1 & S2, No JVD. Pulse regular. No chest wall tenderness Lungs: clear to auscultation, no wheezes/rales Abdomen:Soft, non-tender, no rigidity. Neurological:Normal cognition and motor skills. Non-focal - Patient Status Disposition: Home, Self-Care Condition: Good Functional capacity at discharge: independent ambulation - Discharge Instructions Instructions: Chest Pain (DC), Anxiety (DC), Chronic Obstructive Pulmonary Disease (DC), Chronic Hypertension (DC) Follow Up With: Jenifer Louis MD [Primary Care Provider] - - Diet and Activity Activity: resume usual activities as tolerated Diet: regular diet
--- NOTE | 2018-11-09 13:41 | Electrocardiograph Report ---
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
--- NOTE | 2018-11-11 13:13 | Electrocardiograph Report ---
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
--- NOTE | 2018-11-11 13:27 | Electrocardiograph Report ---
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
--- NOTE | 2018-11-11 13:29 | Electrocardiograph Report ---
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
== END 2018-11-07 15:54 | disposition home or self-care (01) ==
LOC: 3BNU 11:44 → EMEROOARM 11:44 → SUATTDRO 14:47 → 3BNU 15:40
PROVIDERS: ADMIT Student in an Organized Health Care Education/Training Program; ATTEND Internal Medicine

== ENCOUNTER 2019-02-03 10:23 | Observation (INO) ==
[2019-02-03] MEDS ORDERED: Ipratropium/Albuterol Neb 3 ML IH ONE (10:34)
[2019-02-03 11:40] LABS: Basophils # 0.1 K/mcL (0.0-0.2); Basophils % 0.8 %; Eosinophils # 0.2 K/mcL (0.0-0.6); Eosinophils % 3.2 %; Hematocrit 41.3 % (35.3-44.9); Hemoglobin 14.2 g/dL (11.5-15.4); Immature Granulocytes % 0.3 % (0-4); Lymphocytes # 2.2 K/mcL (0.6-4.6); Lymphocytes % 28.5 %; Mean Corpuscular HGB Conc 34.4 g/dL (31.6-35.5); Mean Corpuscular Hemoglobin 32.3 pg (28.0-33.3); Mean Corpuscular Volume 94.1 fL (83.0-100.0); Mean Platelet Volume 9.7 fL (9.4-12.4); Monocytes # 0.6 K/mcL (0.0-1.3); Monocytes % 7.6 %; Neutrophils # 4.5 K/mcL (1.6-8.9); Platelet Count 269 K/mcL (140-400); Red Blood Count 4.39 M/mcL (3.82-4.97); Red Cell Distribution Width 12.2 % (11.5-14.5); Segmented Neutrophils % 59.6 %; White Blood Count 7.5 K/mcL (4.3-11.1)
[2019-02-03 12:00] LABS: BUN/Creatinine Ratio 19 (6-26); Blood Urea Nitrogen 27 mg/dL (8-23); Calcium 9.3 mg/dL (8.6-10.3); Carbon Dioxide 23 mEq/L (23-29); Chloride 102 mEq/L (98-107); Glucose 109 mg/dL (70-105); Osmolality,Calculated 282 (280-300); Potassium 5.3 mEq/L (3.5-5.1); Sodium 133 mEq/L (136-145); Troponin I < 0.03 ng/mL (< 0.04); eGFR For African Americans 45 (> 60); eGFR For Non-African Americans 37 (> 60)
[2019-02-03] MEDS ORDERED: Nitroglycerin 0.4 MG TAB.SUBL SL PRN (12:31)
[2019-02-03] MEDS ORDERED: Nitroglycerin 0.4 MG TAB.SUBL SL ONE (12:33)
[2019-02-03] MEDS ORDERED: D5% in Water 1,000 ML IVC PRN (13:59)
[2019-02-03] MEDS ORDERED: *HR* Dextrose 50 % in Water (Syg) 50 ML SYRINGE IVP PRN (13:59)
[2019-02-03] MEDS ORDERED: Dextrose Gel 15 GM/37.5 ML TUBE PO PRN ×2 (13:59)
[2019-02-03] MEDS ORDERED: Naloxone 0.4 MG/ML INJ IVP PRN (14:01)
[2019-02-03] MEDS ORDERED: Acetaminophen 325 MG TABLET PO PRN ×2 (14:01→14:15)
[2019-02-03] MEDS ORDERED: Ondansetron 4 MG/2 ML VIAL IVP PRN (14:01)
[2019-02-03] MEDS ORDERED: Albuterol 2.5 MG/3 ML NEBULIZER IH PRN (14:13)
[2019-02-03] MEDS ORDERED: traMADol 50 MG TABLET PO PRN (14:13)
[2019-02-03] MEDS ORDERED: *HR* LORazepam 0.5 MG TABLET PO PRN (14:13)
[2019-02-03] MEDS ORDERED: Calcium Gluconate 1gm/50mL 1 GM/50 ML BAG IVPB ONE (15:30)
[2019-02-03 15:56] LABS: Amphetamine Screen,Urine Negative ng/mL (Cutoff=1000); Barbiturate Screen,Urine Negative ng/mL (Cutoff=200); Benzodiazepines Screen,Urine Negative ng/mL (Cutoff=200); Cannabinoid Screen,Urine Positive ng/mL (Cutoff = 50); Cocaine Screen,Urine Negative ng/mL (Cutoff= 300); Opiate Screen,Urine Negative ng/mL (Cutoff=300); Phencyclidine Screen,Urine Negative ng/mL (Cutoff=25)
[2019-02-03] MEDS: Nicotine 21 MG PATCH.TD24 TD SCH (16:10)
[2019-02-03] MEDS: Insulin LISPRO 300 UNITS/3 ML VIAL SQ SCH (16:56)
[2019-02-03] MEDS: Nitroglycerin 0.4 MG TAB.SUBL SL PRN (19:09)
[2019-02-03] MEDS ORDERED: Insulin LISPRO 300 UNITS/3 ML VIAL SQ SCH (21:00)
[2019-02-03] MEDS ORDERED: ARIPiprazole 5 MG TABLET PO SCH (21:00)
[2019-02-03] MEDS ORDERED: Topiramate 25 MG TABLET PO SCH (21:00)
[2019-02-03] MEDS: *HR* Heparin 5,000 UNIT/ML VIAL SQ SCH (22:15)
[2019-02-04 01:25] LABS: Chol/HDL Ratio 3.1 (0-4.9)
[2019-02-04 01:26] LABS: Calcium 9.2 mg/dL (8.6-10.3); Magnesium 1.9 mg/dL (1.6-2.6); Potassium 4.5 mEq/L (3.5-5.1)
[2019-02-04] MEDS: Nitroglycerin 0.4 MG TAB.SUBL SL PRN (05:01)
[2019-02-04] MEDS: *HR* Heparin 5,000 UNIT/ML VIAL SQ SCH ×2 (05:05→13:33)
[2019-02-04] MEDS: Insulin LISPRO 300 UNITS/3 ML VIAL SQ SCH ×2 (07:43→12:44)
[2019-02-04] MEDS: Nicotine 21 MG PATCH.TD24 TD SCH (08:03)
[2019-02-04] MEDS ORDERED: Lisinopril 20 MG TABLET PO SCH (09:00)
[2019-02-04] MEDS ORDERED: Magnesium Oxide 400 MG TABLET PO SCH (09:00)
[2019-02-04] MEDS ORDERED: Aspirin Enteric Coated 81 MG Tablet PO SCH (09:00)
[2019-02-04 12:03] LABS: Estimated Average Glucose 134 mg/dl
[2019-02-04 12:10] VITALS: BP 107/72
[2019-02-04] MEDS ORDERED: Metoprolol XL (24 HR) Succ 25 MG TAB.ER.24H PO SCH (12:20)
== END 2019-02-04 17:03 | disposition home or self-care (01) ==
LOC: 3BNU 10:23 → EMEROOARM 10:23 → 3BNU 14:02
PROVIDERS: ADMIT Internal Medicine; ATTEND Internal Medicine